=== PATIENT | male | born 1975 | race Caucasian/White ===

== ENCOUNTER 2016-04-20 16:42 | Emergency (ER) | payer SELFPAY ==
[~2016-04-20] VITALS: Ht 203.2 cm; Wt 97.0 kg
[~2016-04-20 16:42] MED LIST: HYDR-3533 PO; NAPR500 PO; ZOFR4TAB3 SL
[2016-04-20 16:44] VITALS: BP 147/84; PULSE 80; RESP 14; TEMP 98.1; O2SAT 96
== END 2016-04-20 19:17 | disposition left against medical advice (07) ==
LOC: NED 16:42
DX: R10.9 Unspecified abdominal pain (principal)
CPT/HCPCS: 99281

== ENCOUNTER 2016-09-17 17:57 | Observation (INO) | payer MEDICAID ==
[~2016-09-17] VITALS: Ht 203.2 cm; Wt 115.0 kg
[2016-09-17 17:58] VITALS: BP 140/77; PULSE 88; RESP 20; TEMP 98.6; O2SAT 97
--- NOTE | 2016-09-17 18:07 | PD ---
Physical Exam Time Seen by Provider: 18:04 Narrative 41yo M c/o excessive urination, thirst, lightheaded, dizziness, and dry mouth x4 days. +vomiting a couple times. Denies chest pain, SOB currently; reports chest pain Tuesday night. BGM in triage is "out of reportable range" x2. Patient seen in triage. VS reviewed. Awaiting bed placement. Data Data Last Documented VS Vital Signs Date Time Temp Pulse Resp B/P Pulse Ox O2 Delivery O2 Flow Rate FiO2 09/17/16 17:58 98.6 88 20 140/77 97 Room Air [facility] Supervised Visit with NESSA: Yenny Garibay Sep 17, 2016 18:07
--- NOTE | 2016-09-17 18:13 | PD ---
HPI . polyuria and polydipsia x 4 days Chief Complaint: Medical Clearance Time Seen by Provider: 18:23 Travel History International Travel<30 days: No Contact w/Intl Traveler<30days: No Traveled to known affect area: No History of Present Illness HPI 41-year-old male with no known medical history here with complaints of polyuria , polydipsia and fatigue for the past 4 days. Patient says that all of a sudden he developed these symptoms and feels like he is always thirsty. He tells me he drinks large amounts of liquids and never feels satisfied. He also reports having to urinate all the time. He tells me that he just feels fatigued and weak. He is in the process of applying for patient assistance and has not seen a primary care physician in a very long time. In triage his blood sugar was taken and could not be registered on the meter. He is accompanied by his . He denies any chest pain, nausea, vomiting, diaphoresis, or abdominal pain. PFSH Past Medical History Diminished Hearing: No Past Surgical History Eye Surgery: Yes (bilateral lens replacement) Tonsillectomy: Yes Social History Alcohol Use: No Tobacco Use: Yes (1 ppd) Substance Use: No Allergies-Medications (Allergen,Severity, Reaction): Coded Allergies: No Known Allergies (Unverified , 09/17/16) Reported Meds & Prescriptions Reported Meds & Active Scripts Active No Active Prescriptions or Reported Medications Review of Systems General / Constitutional: No: Fever Eyes: No: Visual changes HENT: No: Headaches Cardiovascular: No: Chest Pain or Discomfort Respiratory: No: Shortness of Breath Gastrointestinal: No: Abdominal Pain Genitourinary: No: Dysuria Musculoskeletal: No: Pain Skin: No Rash Neurologic: No: Weakness Psychiatric: No: Depression Endocrine: No: Polydipsia Hematologic/Lymphatic: No: Easy Bruising Physical Exam Narrative GENERAL: AAO x 3, no acute distress, Well-nourished, well-developed patient. SKIN: Warm and dry. No visible rashes or bruising. HEAD: Normocephalic and atraumatic. EYES: No scleral icterus. No injection or drainage. EOM intact, PERRLA ENT: No nasal drainage noted. Mucous membranes pink. Airway patent. Moist mucous membranes NECK: Supple, trachea midline. No JVD. CARDIOVASCULAR: Regular rate and rhythm without murmurs, gallops, or rubs. RESPIRATORY: Breath sounds equal bilaterally. No accessory muscle use. No rhonchi or rales. GASTROINTESTINAL: Abdomen soft, non-tender, nondistended. EXTREMITIES: No cyanosis or edema. BACK: Nontender without obvious deformity. No CVA tenderness. NEURO: CN II-12 intact, sales account leader strength normal b/l, UE and LE 5/5, no focal deficits PSYCH: AAO x 3, normal affect. Data Data Last Documented VS Vital Signs Date Time Temp Pulse Resp B/P Pulse Ox O2 Delivery O2 Flow Rate FiO2 09/17/16 19:06 85 18 134/79 97 09/17/16 17:58 98.6 Room Air Orders Package Pick Up / Telemetry [id number] (09/17/16 18:30) ^ Insert Iv (09/17/16 18:30) Diet Npo (09/17/16 Dinner) Complete Blood Count With Diff (09/17/16 18:30) Comprehensive Metabolic Panel (09/17/16 18:30) Beta Hydroxybutyrate (Acetone) (09/17/16 18:30) Hemoglobin (Hgb) A1c (09/17/16 18:30) Urinalysis - C+S If Indicated (09/17/16 18:30) Sodium Chlor 0.9% 1000 Ml Inj (Ns 1000 M (09/17/16 19:00) Arterial Blood Gas (Abg) (09/17/16 ) Insulin Human Regular Inj (Novolin R Inj (09/17/16 21:00) Labs Laboratory Tests Test 09/17/16 09/17/16 09/17/16 18:30 19:03 20:39 White Blood Count 9.6 TH/MM3 Red Blood Count 4.55 MIL/MM3 Hemoglobin 13.4 GM/DL Hematocrit 40.1 % Mean Corpuscular Volume 88.0 FL Mean Corpuscular Hemoglobin 29.5 PG Mean Corpuscular Hemoglobin 33.5 % Concent Red Cell Distribution Width 13.6 % Platelet Count 267 TH/MM3 Mean Platelet Volume 9.3 FL Neutrophils (%) (Auto) 68.3 % Lymphocytes (%) (Auto) 21.0 % Monocytes (%) (Auto) 7.9 % Eosinophils (%) (Auto) 2.1 % Basophils (%) (Auto) 0.7 % Neutrophils # (Auto) 6.6 TH/MM3 Lymphocytes # (Auto) 2.0 TH/MM3 Monocytes # (Auto) 0.8 TH/MM3 Eosinophils # (Auto) 0.2 TH/MM3 Basophils # (Auto) 0.1 TH/MM3 CBC Comment DIFF FINAL Differential Comment Sodium Level 126 MEQ/L Potassium Level 4.0 MEQ/L Chloride Level 91 MEQ/L Carbon Dioxide Level 23.8 MEQ/L Anion Gap 11 MEQ/L Blood Urea Nitrogen 9 MG/DL Creatinine 1.16 MG/DL Estimat Glomerular Filtration 70 ML/MIN Rate Random Glucose 738 MG/DL Calcium Level 8.7 MG/DL Total Bilirubin 0.3 MG/DL Aspartate Amino Transf 21 U/L (AST/SGOT) Alanine Aminotransferase 46 U/L (ALT/SGPT) Alkaline Phosphatase 202 U/L Total Protein 7.1 GM/DL Albumin 3.5 GM/DL B-Hydroxybutyrate 0.18 MMOL/L Blood Gas Puncture Site RT RADIAL Blood Gas Patient Temperature 98.6 Blood Gas HCO3 24 mmol/L Blood Gas Base Excess 0.3 mmol/L Blood Gas Oxygen Saturation 90 % Arterial Blood pH 7.42 Arterial Blood Partial 38 mmHg Pressure CO2 Arterial Blood Partial 74 mmHG Pressure O2 Arterial Blood Oxygen Content 16.8 Vol % Arterial Blood 4.7 % Carboxyhemoglobin Arterial Blood Methemoglobin 0.9 % Blood Gas Hemoglobin 13.2 G/DL Oxygen Delivery Device ROOM AIR Blood Gas Inspired Oxygen 21 % Urine Color LIGHT-YELLOW Urine Turbidity CLEAR Urine pH 5.0 Urine Specific [place] 1.032 Urine Protein NEG mg/dL Urine Glucose (UA) 1000 mg/dL Urine Ketones NEG mg/dL Urine Occult Blood NEG Urine Nitrite NEG Urine Bilirubin NEG Urine Urobilinogen LESS THAN 2.0 MG/DL Urine Leukocyte Esterase NEG Urine WBC 1 /hpf Urine Squamous Epithelial <1 /hpf Cells Microscopic Urinalysis Comment CULT NOT INDICATED MDM Medical Decision Making Medical Screen Exam Complete: Yes Emergency Medical Condition: Yes Medical Record Reviewed: Yes Differential Diagnosis Newly diagnosed diabetes, DKA, urinary tract infection Narrative Course 41-year-old male here with complaints of polyuria, polydipsia and fatigue. It appears the patient has newly diagnosed diabetes. IV access and cardiac monitoring were started here in the ED. Labs have been obtained. Case was discussed with Dr. Guillen Laboratory Tests Test 09/17/16 09/17/16 09/17/16 18:30 19:03 20:39 White Blood Count 9.6 TH/MM3 Red Blood Count 4.55 MIL/MM3 Hemoglobin 13.4 GM/DL Hematocrit 40.1 % Mean Corpuscular Volume 88.0 FL Mean Corpuscular Hemoglobin 29.5 PG Mean Corpuscular Hemoglobin 33.5 % Concent Red Cell Distribution Width 13.6 % Platelet Count 267 TH/MM3 Mean Platelet Volume 9.3 FL Neutrophils (%) (Auto) 68.3 % Lymphocytes (%) (Auto) 21.0 % Monocytes (%) (Auto) 7.9 % Eosinophils (%) (Auto) 2.1 % Basophils (%) (Auto) 0.7 % Neutrophils # (Auto) 6.6 TH/MM3 Lymphocytes # (Auto) 2.0 TH/MM3 Monocytes # (Auto) 0.8 TH/MM3 Eosinophils # (Auto) 0.2 TH/MM3 Basophils # (Auto) 0.1 TH/MM3 CBC Comment DIFF FINAL Differential Comment Sodium Level 126 MEQ/L Potassium Level 4.0 MEQ/L Chloride Level 91 MEQ/L Carbon Dioxide Level 23.8 MEQ/L Anion Gap 11 MEQ/L Blood Urea Nitrogen 9 MG/DL Creatinine 1.16 MG/DL Estimat Glomerular Filtration 70 ML/MIN Rate Random Glucose 738 MG/DL Calcium Level 8.7 MG/DL Total Bilirubin 0.3 MG/DL Aspartate Amino Transf 21 U/L (AST/SGOT) Alanine Aminotransferase 46 U/L (ALT/SGPT) Alkaline Phosphatase 202 U/L Total Protein 7.1 GM/DL Albumin 3.5 GM/DL B-Hydroxybutyrate 0.18 MMOL/L Blood Gas Puncture Site RT RADIAL Blood Gas Patient Temperature 98.6 Blood Gas HCO3 24 mmol/L Blood Gas Base Excess 0.3 mmol/L Blood Gas Oxygen Saturation 90 % Arterial Blood pH 7.42 Arterial Blood Partial 38 mmHg Pressure CO2 Arterial Blood Partial 74 mmHG Pressure O2 Arterial Blood Oxygen Content 16.8 Vol % Arterial Blood 4.7 % Carboxyhemoglobin Arterial Blood Methemoglobin 0.9 % Blood Gas Hemoglobin 13.2 G/DL Oxygen Delivery Device ROOM AIR Blood Gas Inspired Oxygen 21 % Urine Color LIGHT-YELLOW Urine Turbidity CLEAR Urine pH 5.0 Urine Specific [place] 1.032 Urine Protein NEG mg/dL Urine Glucose (UA) 1000 mg/dL Urine Ketones NEG mg/dL Urine Occult Blood NEG Urine Nitrite NEG Urine Bilirubin NEG Urine Urobilinogen LESS THAN 2.0 MG/DL Urine Leukocyte Esterase NEG Urine WBC 1 /hpf Urine Squamous Epithelial <1 /hpf Cells Microscopic Urinalysis Comment CULT NOT INDICATED He is not in any signs of DKA. Here in the emergency department patient was given IV fluids and IV insulin. I recommend admission for hyperglycemia and newly diagnosed diabetes. Discussed this with the patient and he is in agreement. 2114: Case discussed with Dr. Barber. Patient will be admitted for observation. Diagnosis Primary Impression: Hyperglycemia Additional Impression: Diabetes mellitus, new onset Admitting Information Admitting Physician Requests: Admit Scripts No Active Prescriptions or Reported Meds Condition: Stable Oksana Horn Sep 17, 2016 18:12
[2016-09-17] MEDS ORDERED: SODIUM CHLOR 0.9% 1000 ML INJ 1,000 ML IV ONE (19:00)
[2016-09-17 19:06] VITALS: BP 134/79; PULSE 85; RESP 18; O2SAT 97
[2016-09-17 19:13] LABS: AUTOMATED NEUTROPHIL # 6.6 TH/MM3 (1.8-7.7); BASOPHIL # 0.1 TH/MM3 (0-0.2); BASOPHIL % 0.7 % (0.0-2.0); EOSINOPHIL # 0.2 TH/MM3 (0-0.4); EOSINOPHIL % 2.1 % (0.0-4.0); HEMATOCRIT 40.1 % (39.0-51.0); HEMO FLAGS DIFF FINAL; MEAN CORPUSCULAR HEMOGLOBIN 29.5 PG (27.0-34.0); MEAN CORPUSCULAR HGB CONC 33.5 % (32.0-36.0); MONO % 7.9 % (0.0-8.0); NEUT % 68.3 % (16.0-70.0); PLATELET COUNT 267 TH/MM3 (150-450); RED BLOOD COUNT 4.55 MIL/MM3 (4.50-5.90); RED CELL DISTRIBUTION WIDTH 13.6 % (11.6-17.2); WHITE BLOOD COUNT 9.6 TH/MM3 (4.0-11.0)
[2016-09-17 19:13] LABS: BLOOD GAS BASE EXCESS 0.3 mmol/L (-2-2); BLOOD GAS CARBOXYHEMOGLOBIN 4.7 % (0-4); BLOOD GAS HCO3 24 mmol/L (22-26); BLOOD GAS METHEMOGLOBIN 0.9 % (0-2); BLOOD GAS O2 HGB SATURATION 90 % (90-100); BLOOD GAS OXYGEN CONTENT 16.8 Vol % (12.0-20.0); BLOOD GAS PCO2 38 mmHg (38-42); BLOOD GAS PO2 74 mmHG (61-120); BLOOD GAS TOTAL HGB 13.2 G/DL (12.0-16.0); TEMP CORR TO 98.6
[2016-09-17 19:14] LABS: CRITICAL VALUE NO; DRAW SITE RT RADIAL; FIO2 21 %; NUMBER OF ARTERIAL PUNCTURES 1; OXYGEN DEVICE ROOM AIR; STAT YES; ULNAR PULSE PRESENT
[2016-09-17 19:48] LABS: ALKALINE PHOSPHATASE 202 U/L (45-117); ALT (GPT) 46 U/L (12-78); ANION GAP 11 MEQ/L (5-15); AST (GOT) 21 U/L (15-37); BETA-HYDROXYBUTYRATE 0.18 MMOL/L (0.00-0.39); BICARBONATE 23.8 MEQ/L (21.0-32.0); BLOOD UREA NITROGEN 9 MG/DL (7-18); CHLORIDE 91 MEQ/L (98-107); GLOMERULAR FILTRATION RATE 70 ML/MIN (>89); SODIUM (NA) 126 MEQ/L (136-145); TOTAL BILIRUBIN ADULT 0.3 MG/DL (0.2-1.0)
[2016-09-17 20:58] LABS: BLOOD, URINE NEG (NEG); COMMENT (UR) CULT NOT INDICATED; CULTURE IF INDICATED CULT NOT INDICATED; GLUCOSE,URINE 1000 mg/dL (NEG); KETONE, URINE NEG (NEG); NITRITE,URINE NEG (NEG); SQUAMOUS EPITHELIAL CELL URINE <1 /hpf (0-5); URINE COLOR LIGHT-YELLOW (YELLW/STRAW)
[2016-09-17] MEDS ORDERED: INSULIN HUMAN REGULAR 1,000 UNITS/10 ML VIAL IV PUSH ONE (21:00)
[2016-09-17] MEDS ORDERED: LACTULOSE SYRUP 20 GM/30 ML CUP PO PRN (21:30)
[2016-09-17] MEDS ORDERED: BISACODYL 10 MG SUPP RECTAL PRN (21:30)
[2016-09-17] MEDS ORDERED: ONDANSETRON HCL 4 MG/2 ML VIAL IVP PRN (21:30)
[2016-09-17] MEDS ORDERED: MAGNESIUM HYDROXIDE SUSP 30 ML CUP PO PRN (21:30)
[2016-09-17] MEDS ORDERED: SENNOSIDES 8.6 MG TAB PO PRN (21:30)
[2016-09-17] MEDS ORDERED: DEXTROSE 50% IN WATER 50 ML VIAL(D50) IV PRN (21:30)
[2016-09-17] MEDS ORDERED: GLUCAGON 1 MG/ML VIAL OTHER PRN (21:30)
[2016-09-17] MEDS ORDERED: NALOXONE HCL 0.4 MG/ML AMP IV PRN (21:30)
[2016-09-18] VITALS (9 sets, daily range): BP systolic 106–129; BP diastolic 58–74; PULSE 53–81; RESP 18–22; TEMP 96.4–98.6; O2SAT 94–100
--- NOTE | 2016-09-18 01:37 | HHI.HP ---
[facility] Primary Care Physician No Primary Care Physician Admission Diagnosis hyperglycemia/newly dx diabetes Diagnoses: (1) Hyperglycemia (2) Diabetes mellitus, new onset (3) Hyponatremia Chief Complaint: Polydipsia, polyuria Travel History International Travel<30 Days: No Contact w/Intl Traveler <30 Da: No Traveled to Known Affected Are: No History of Present Illness The patient is a 41-year-old male who presented to the emergency department with complaint of polyuria and polydipsia for the past 4 days. He states that he has not been eating the last couple days, but has been drinking water constantly. He feels fatigued. He developed abdominal discomfort, nausea, and vomited once today. Review of Systems Constitutional: DENIES: Fever, Chills, Night Sweats Endocrine: COMPLAINS OF: Polydipsia, Polyuria Eyes: DENIES: Blurred vision, Vision loss Ears, nose, mouth, throat: DENIES: Hearing loss Respiratory: DENIES: Cough, Wheezing, Sputum production, Shortness of breath Cardiovascular: DENIES: Chest pain, Palpitations, Dyspnea on Exertion, Lower Extremity Edema Gastrointestinal: COMPLAINS OF: Abdominal pain, Nausea, Vomiting, DENIES: Constipation, Diarrhea Genitourinary: DENIES: Urinary frequency, Urinary incontinence, Urgency, Hematuria, Dysuria, Nocturia Musculoskeletal: DENIES: Joint pain, Muscle aches Integumentary: DENIES: Pruritus, Rash Hematologic/lymphatic: DENIES: Bruising Neurologic: DENIES: Headache Past Family Social History Past Medical History None Past Surgical History Tonsillectomy Bilateral eye surgery Reported Medications None Allergies: Coded Allergies: No Known Allergies (Unverified , 09/17/16) Family History COPD Diabetes mellitus type 2 Social History Smokes one half pack per day. Denies alcohol or illicit drug use. Physical Exam Vital Signs Vital Signs Date Time Temp Pulse Resp B/P Pulse Ox O2 Delivery O2 Flow Rate FiO2 09/18/16 00:10 98.4 68 18 129/74 94 09/17/16 19:06 85 18 134/79 97 09/17/16 18:16 88 16 09/17/16 17:58 98.6 88 20 140/77 97 Room Air Physical Exam GENERAL: Well-nourished, well-developed male in no acute distress. HEENT: Normocephalic, atraumatic. Pupils equal, round and reactive. Extraocular movements intact. No scleral icterus. No injection or drainage. Oropharynx is clear. Mucous membranes are moist. Poor dentition. CARDIOVASCULAR: Regular rate and rhythm without murmurs, gallops, or rubs. RESPIRATORY: Clear to auscultation. No wheezes, rales, or rhonchi. Breathing is non-labored. GASTROINTESTINAL: Abdomen soft, non-tender, nondistended. EXTREMITIES: Trace bilateral lower extremity edema. No calf tenderness. PSYCH: Alert and oriented x 3. Laboratory Laboratory Tests Test 09/17/16 09/17/16 09/17/16 18:30 19:03 20:39 White Blood Count 9.6 Red Blood Count 4.55 Hemoglobin 13.4 Hematocrit 40.1 Mean Corpuscular Volume 88.0 Mean Corpuscular Hemoglobin 29.5 Mean Corpuscular Hemoglobin 33.5 Concent Red Cell Distribution Width 13.6 Platelet Count 267 Mean Platelet Volume 9.3 Neutrophils (%) (Auto) 68.3 Lymphocytes (%) (Auto) 21.0 Monocytes (%) (Auto) 7.9 Eosinophils (%) (Auto) 2.1 Basophils (%) (Auto) 0.7 Neutrophils # (Auto) 6.6 Lymphocytes # (Auto) 2.0 Monocytes # (Auto) 0.8 Eosinophils # (Auto) 0.2 Basophils # (Auto) 0.1 CBC Comment DIFF FINAL Differential Comment Sodium Level 126 Potassium Level 4.0 Chloride Level 91 Carbon Dioxide Level 23.8 Anion Gap 11 Blood Urea Nitrogen 9 Creatinine 1.16 Estimat Glomerular Filtration 70 Rate Random Glucose 738 Calcium Level 8.7 Total Bilirubin 0.3 Aspartate Amino Transf 21 (AST/SGOT) Alanine Aminotransferase 46 (ALT/SGPT) Alkaline Phosphatase 202 Total Protein 7.1 Albumin 3.5 B-Hydroxybutyrate 0.18 Blood Gas Puncture Site RT RADIAL Blood Gas Patient Temperature 98.6 Blood Gas HCO3 24 Blood Gas Base Excess 0.3 Blood Gas Oxygen Saturation 90 Arterial Blood pH 7.42 Arterial Blood Partial 38 Pressure CO2 Arterial Blood Partial 74 Pressure O2 Arterial Blood Oxygen Content 16.8 Arterial Blood 4.7 Carboxyhemoglobin Arterial Blood Methemoglobin 0.9 Blood Gas Hemoglobin 13.2 Oxygen Delivery Device ROOM AIR Blood Gas Inspired Oxygen 21 Urine Color LIGHT-YELLOW Urine Turbidity CLEAR Urine pH 5.0 Urine Specific [place] 1.032 Urine Protein NEG Urine Glucose (UA) 1000 Urine Ketones NEG Urine Occult Blood NEG Urine Nitrite NEG Urine Bilirubin NEG Urine Urobilinogen LESS THAN 2.0 Urine Leukocyte Esterase NEG Urine WBC 1 Urine Squamous Epithelial <1 Cells Microscopic Urinalysis Comment CULT NOT INDICATED Result Diagram: 09/17/16182909/17/161829 Assessment and Plan Assessment and Plan 1. Hyperglycemia, new onset diabetes mellitus: Hemoglobin A1c is pending. Diabetic diet. Monitor Accu-Cheks and cover with sliding scale insulin. scrap sorter consult. I discussed at length with the patient the importance of controlling glucose with diet and medication. 2. Hyponatremia: Continue IV fluids. Monitor labs. 3. DVT prophylaxis: BENNETT Rojas. Hubert Cunningham MD Sep 18, 2016 01:37
[2016-09-18] MEDS: NS + KCL 20 MEQ INJ 1,000 ML IV SCH ×3 (03:00→21:45)
[2016-09-18] MEDS: INSULIN ASPART SUPPLEMENTAL SCALE SQ SCH ×4 (06:46→21:55)
[2016-09-18] MEDS: ACETAMINOPHEN 325 MG TAB PO PRN ×3 (06:51→21:56)
[2016-09-18 07:42] LABS: BICARBONATE 23.1 MEQ/L (21.0-32.0)
--- NOTE | 2016-09-18 10:16 | HHI.PR ---
Subjective Remarks Follow up for new onset diabetes. The patient reports his polydipsia and polyuria has improved. Denies any other medical complaints including no nausea/ vomiting/abdominal pain. He is tolerating oral intake. 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 Discussed regular foot and eye exams. Patient plans to go to PCP through [employer] patient assistance program. Discussed free diabetic education classes through [employer] ([place] Discussed depending on results of HgbA1c he will either have to be on insulin injections or oral medications. The patient is understanding and agreeable with the plan. Objective Vitals Vital Signs Date Time Temp Pulse Resp B/P Pulse Ox O2 Delivery O2 Flow Rate FiO2 09/18/16 08:00 96.4 66 18 117/68 97 09/18/16 04:22 68 09/18/16 03:32 98.6 66 18 121/59 97 09/18/16 00:10 98.4 68 18 129/74 94 09/17/16 19:06 85 18 134/79 97 09/17/16 18:16 88 16 09/17/16 17:58 98.6 88 20 140/77 97 Room Air I/O 09/17/16 09/17/16 09/17/16 09/18/16 09/18/16 09/18/16 07:00 15:00 23:00 07:00 15:00 23:00 Intake Total 600 ml Balance 600 ml Intake IV Total 600 ml Result Diagram: 09/17/16 1830 09/18/16 0640 Objective Remarks GENERAL: Well-nourished, well-developed middle aged male patient in [facility]. SKIN: Warm and dry. No rash. HEENT: Normocephalic. Atraumatic.Pupils equal and round. Mucous membranes pink and moist. NECK: Supple. Trachea midline. CARDIOVASCULAR: Regular rate and rhythm. S1, S2 noted. No murmur appreciated. RESPIRATORY: No accessory muscle use. Clear to auscultation. Breath sounds equal bilaterally. GASTROINTESTINAL: Abdomen soft, non-tender, nondistended. Normoactive bowel sounds x4. MUSCULOSKELETAL: No obvious deformities. Extremities without clubbing, cyanosis , or edema. NEUROLOGICAL: Awake and alert. No obvious cranial nerve deficits. Motor grossly within normal limits. Normal speech. PSYCHIATRIC: Appropriate mood and affect; insight and judgment normal. Medications and IVs Current Medications Medications (Trade) Dose Ordered Sig/Lynda Route Start Time Stop Time Status Last Admin (Tylenol) 650 mg Q4H PRN PO 09/17/16 21:30 09/18/16 06:51 (Zofran Inj) 4 mg Q6H PRN IVP 09/17/16 21:30 (Narcan Inj) 0.4 mg UNSCH PRN IV 09/17/16 21:30 (Milk Of Magnesia Liq) 30 ml Q12H PRN PO 09/17/16 21:30 (Senokot) 17.2 mg Q12H PRN PO 09/17/16 21:30 (Dulcolax Supp) 10 mg DAILY PRN RECTAL 09/17/16 21:30 (Lactulose Liq) 30 ml DAILY PRN PO 09/17/16 21:30 (D50w (Vial) Inj) 50 ml UNSCH PRN IV 09/17/16 21:30 Glucagon 1 mg 1 mg UNSCH PRN OTHER 09/17/16 21:30 (NS + KCl 20 Meq Inj) 1,000 ml @ 100 mls/hr Q10H IV 09/18/16 01:30 09/18/16 03:00 A/P Problem List: (1) Hyperglycemia ICD Code: R73.9 Status: Acute (2) Diabetes mellitus, new onset ICD Code: E11.9 Status: Acute (3) Hyponatremia ICD Code: E87.1 Status: Acute Assessment and Plan 41-year-old male with no significant past medical history, presented to the ED who presented to the emergency department with complaint of polyuria and polydipsia for the past 4 days. Severe Hyperglycemia, New Onset Diabetes Mellitus: BG 738 upon arrival, not in DKA. Hemoglobin A1c is pending. Diabetic diet. Monitor Accu-Cheks and cover with sliding scale insulin. unit educator and Track Repair Person consult. I discussed at length with the patient the importance of controlling glucose with diet and medications. Also educated on regular eye/foot exams, controlling cholesterol with LDL goal < 70. Depending on HgbA1c results, will either start on oral hypoglycemics or insulin injections. Needs close f/up with PCP, will be going [facility]. 1140hrs: Patient with blood glucose 461. Discussed with RN. Will give IVF bolus 1L and IV regular insulin 10u. HgbA1c still pending however will start on Levemir 10u hs and increase to medium dose SSI. Moderate Hyponatremia: Na 126 upon arrival. Suspect secondary to polyuria. Continue IV fluids. Repeat BMP with Na 138. Resolved. Severe Hypertriglyceridemia/Hyperlipidemia: triglycerides 926, LDL unable to be calculated. LFTs essentially wnl. Will start on Lipitor 80mg hs. DVT prophylaxis: BENNETT Rojas. Discharge Planning Pending HgbA1c and further blood glucose control. Pao Hernandez PA-C Sep 18, 2016 10:16
[2016-09-18 11:14] LABS: HDL CHOLESTEROL 24.1 MG/DL (40.0-60.0)
[2016-09-18] MEDS ORDERED: SODIUM CHLOR 0.9% 1000 ML INJ 1,000 ML IV ONE (11:45)
[2016-09-18] MEDS ORDERED: INSULIN HUMAN REGULAR 1,000 UNITS/10 ML VIAL IV PUSH ONE (11:45)
[2016-09-18] MEDS ORDERED: INSULIN DETEMIR 100 UNITS/ML VIAL SQ SCH (21:00)
[2016-09-18] MEDS: ATORVASTATIN 80 MG TAB PO SCH (21:44)
[2016-09-19] VITALS (10 sets, daily range): BP systolic 113–126; BP diastolic 64–75; PULSE 55–74; RESP 18; TEMP 97.7–98; O2SAT 97–98
[2016-09-19 05:37] LABS: BICARBONATE 23.4 MEQ/L (21.0-32.0); POTASSIUM 3.7 MEQ/L (3.5-5.1)
[2016-09-19] MEDS: INSULIN ASPART SUPPLEMENTAL SCALE SQ SCH ×4 (06:25→21:20)
[2016-09-19] MEDS: NS + KCL 20 MEQ INJ 1,000 ML IV SCH ×2 (07:30→17:30)
--- NOTE | 2016-09-19 11:21 | HHI.PR ---
Subjective Remarks Follow up for new onset uncontrolled diabetes. The patient reports feeling much better today. Polyuria/polydipsia resolved. He wants to go home however worried about being able to obtain diabetic supplies and insulin, will ask case manager specialist for assistance. Blood sugars still elevated, most recently 247. Objective Vitals Vital Signs Date Time Temp Pulse Resp B/P Pulse Ox O2 Delivery O2 Flow Rate FiO2 09/19/16 08:45 56 09/19/16 07:37 97.7 64 18 113/71 97 09/19/16 03:55 57 09/19/16 03:49 97.7 66 18 115/67 98 09/19/16 00:00 64 09/19/16 00:00 98.0 74 18 121/64 97 09/18/16 20:00 53 09/18/16 19:31 98.1 61 22 120/60 100 09/18/16 17:02 81 09/18/16 16:00 96.8 55 18 106/58 96 09/18/16 12:00 97.8 69 18 118/60 97 I/O 09/18/16 09/18/16 09/18/16 09/19/16 09/19/16 09/19/16 07:00 15:00 23:00 07:00 15:00 23:00 Intake Total 600 ml 1260 ml 1224 ml Balance 600 ml 1260 ml 1224 ml Intake Oral 1260 ml 240 ml IV Total 600 ml 984 ml # Voids 3 1 1 # Bowel Movements 1 Result Diagram: 09/17/16 1830 09/19/16 0453 Objective Remarks GENERAL: Well-nourished, well-developed middle aged male patient in [facility]. SKIN: Warm and dry. No rash. HEENT: Normocephalic. Atraumatic.Pupils equal and round. Mucous membranes pink and moist. NECK: Supple. Trachea midline. CARDIOVASCULAR: Regular rate and rhythm. S1, S2 noted. No murmur appreciated. RESPIRATORY: No accessory muscle use. Clear to auscultation. Breath sounds equal bilaterally. GASTROINTESTINAL: Abdomen soft, non-tender, nondistended. Normoactive bowel sounds x4. MUSCULOSKELETAL: No obvious deformities. Extremities without clubbing, cyanosis , or edema. NEUROLOGICAL: Awake and alert. No obvious cranial nerve deficits. Motor grossly within normal limits. Normal speech. PSYCHIATRIC: Appropriate mood and affect; insight and judgment normal. Medications and IVs Current Medications Medications (Trade) Dose Ordered Sig/Lynda Route Start Time Stop Time Status Last Admin (Tylenol) 650 mg Q4H PRN PO 09/17/16 21:30 09/18/16 21:56 (Zofran Inj) 4 mg Q6H PRN IVP 09/17/16 21:30 (Narcan Inj) 0.4 mg UNSCH PRN IV 09/17/16 21:30 (Milk Of Magnesia Liq) 30 ml Q12H PRN PO 09/17/16 21:30 (Senokot) 17.2 mg Q12H PRN PO 09/17/16 21:30 (Dulcolax Supp) 10 mg DAILY PRN RECTAL 09/17/16 21:30 (Lactulose Liq) 30 ml DAILY PRN PO 09/17/16 21:30 (D50w (Vial) Inj) 50 ml UNSCH PRN IV 09/17/16 21:30 Glucagon 1 mg 1 mg UNSCH PRN OTHER 09/17/16 21:30 (NS + KCl 20 Meq Inj) 1,000 ml @ 100 mls/hr Q10H IV 09/18/16 01:30 09/18/16 21:45 (Lipitor) 80 mg HS PO 09/18/16 21:00 09/18/16 21:44 (Levemir Inj) 10 units HS SQ 09/18/16 21:00 09/18/16 21:55 A/P Problem List: (1) Hyperglycemia ICD Code: R73.9 Status: Acute (2) Diabetes mellitus, new onset ICD Code: E11.9 Status: Acute (3) Hyponatremia ICD Code: E87.1 Status: Acute Assessment and Plan 41-year-old male with no significant past medical history, presented to the ED who presented to the emergency department with complaint of polyuria and polydipsia for the past 4 days. Severe Hyperglycemia, New Onset Diabetes Mellitus: BG 738 upon arrival, not in DKA. Hemoglobin A1c is pending. Diabetic diet. Monitor Accu-Cheks and cover with medium dose SSI. administrative resources associate and Perfume And Toilet Water Maker consult. I discussed at length with the patient the importance of controlling glucose with diet and medications. Also educated on regular eye/foot exams, controlling cholesterol with LDL goal < 70. Still awaiting HgbA1c results (called lab, should be available today), patient will likely require insulin at discharge. Started on Levemir 10u hs, will titrate as needed. Case management consulted to assist with obtaining diabetic supplies, insulin medications, and needs close f/up with PCP, will be going to [facility]. -1600hrs: BG 294. Will increase Levemir to 15u hs. HgbA1c 9.7. Patient not stable for discharge. Need further blood glucose control < 250. Also discussed with case management, will be difficult filling prescriptions as patient has Medicaid pending, hopefully can fill prescriptions in the pharmacy tomorrow prior to discharge. Moderate Hyponatremia: Na 126 upon arrival. Suspect secondary to polyuria. Continue IV fluids. Repeat BMP with Na 138. Resolved. Severe Hypertriglyceridemia/Hyperlipidemia: triglycerides 926, LDL unable to be calculated. LFTs essentially wnl. Started on Lipitor 80mg hs. DVT prophylaxis: SCDs, BENNETT barton. Discharge Planning Pending HgbA1c and further blood glucose control. Possible discharge this afternoon or tomorrow. manager inventory control assistance requested for obtaining diabetic supplies, insulin, and outpatient f/up. Pao Hernandez PA-C Sep 19, 2016 11:21
[2016-09-19] MEDS ORDERED: GLUCKIT15 (11:25)
[2016-09-19] MEDS ORDERED: NOVOLOGP2 SQ (11:25)
[2016-09-19] MEDS ORDERED: LANCETS1 MI1 (11:25)
[2016-09-19] MEDS ORDERED: INSU1MIS15 (11:25)
[2016-09-19] MEDS ORDERED: GLUCTES12 (11:25)
[2016-09-19] MEDS ORDERED: LEVEMIR SQ (17:19)
[2016-09-19] MEDS ORDERED: ATOR1TAB18 PO (17:19)
--- NOTE | 2016-09-19 17:20 | HHI.DCPOC ---
Discharge Care Plan Diagnosis: (1) Diabetes mellitus, new onset (2) Hypertriglyceridemia (3) Hyperlipidemia Goals to Promote Your Health * To prevent worsening of your condition and complications * To maintain your health at the optimal level Directions to Meet Your Goals Take your medications as prescribed Follow your dietary instruction Follow activity as directed Keep your appointments as scheduled Take your immunizations and boosters as scheduled If your symptoms worsen call your PCP, if no PCP go to Urgent Care Center or Emergency Room Smoking is Dangerous to Your Health. Avoid second hand smoke Call the 24-hour hour crisis hotline for domestic abuse at Pao Hernandez PA-C Sep 19, 2016 17:19
[2016-09-19] MEDS: ATORVASTATIN 80 MG TAB PO SCH (20:53)
[2016-09-19] MEDS ORDERED: INSULIN DETEMIR 100 UNITS/ML VIAL SQ SCH (21:00)
[2016-09-20 03:34] VITALS: PULSE 58
[2016-09-20 04:20] VITALS: BP 109/66; PULSE 61; RESP 16; TEMP 97.6; O2SAT 97
[2016-09-20] MEDS: INSULIN ASPART SUPPLEMENTAL SCALE SQ SCH ×2 (06:36→12:24)
[2016-09-20 07:00] VITALS: PULSE 60
[2016-09-20] MEDS ORDERED: LEVEMIR SQ (07:54)
--- NOTE | 2016-09-20 08:00 | HHI.DS ---
Discharge Summary Admission Date Sep 17, 2016 at 21:14 Discharge Date: Sep 20, 2016 Admitting Diagnosis hyperglycemia/newly dx diabetes (1) Hyperglycemia ICD Code: R73.9 Diagnosis: Principal (2) Diabetes mellitus, new onset ICD Code: E11.9 Diagnosis: Principal (3) Hyponatremia ICD Code: E87.1 Diagnosis: Secondary Procedures None Brief History - From Admission The patient is a 41-year-old male who presented to the emergency department with complaint of polyuria and polydipsia for the past 4 days. He states that he has not been eating the last couple days, but has been drinking water constantly. He feels fatigued. He developed abdominal discomfort, nausea, and vomited once today. CBC/BMP: 09/17/16 1830 09/19/16 0453 Significant Findings Laboratory Tests Test 09/17/16 09/17/16 09/17/16 09/18/16 18:30 19:03 20:39 06:40 Sodium Level 126 MEQ/L (136-145) Chloride Level 91 MEQ/L (98-107) Estimat Glomerular Filtration 70 ML/MIN (>89) Rate Random Glucose 738 MG/DL 306 MG/DL (74-106) (74-106) Hemoglobin A1c 9.7 % (4.3-6.0) Alkaline Phosphatase 202 U/L (45-117) Arterial Blood 4.7 % (0-4) Carboxyhemoglobin Urine Glucose (UA) 1000 mg/dL (NEG) Calcium Level 8.4 MG/DL (8.5-10.1) Triglycerides Level 926 MG/DL (42-150) Cholesterol Level 224 MG/DL (120-200) HDL Cholesterol 24.1 MG/DL (40.0-60.0) Test 09/19/16 04:53 Blood Urea Nitrogen 6 MG/DL (7-18) Creatinine 0.49 MG/DL (0.60-1.30) Random Glucose 247 MG/DL (74-106) Calcium Level 8.2 MG/DL (8.5-10.1) PE at Discharge GENERAL: Well-nourished, well-developed middle aged male patient in NAD. SKIN: Warm and dry. No rash. HEENT: Normocephalic. Atraumatic.Pupils equal and round. Mucous membranes pink and moist. NECK: Supple. Trachea midline. CARDIOVASCULAR: Regular rate and rhythm. S1, S2 noted. No murmur appreciated. RESPIRATORY: No accessory muscle use. Clear to auscultation. Breath sounds equal bilaterally. GASTROINTESTINAL: Abdomen soft, non-tender, nondistended. Normoactive bowel sounds x4. MUSCULOSKELETAL: No obvious deformities. Extremities without clubbing, cyanosis , or edema. NEUROLOGICAL: Awake and alert. No obvious cranial nerve deficits. Motor grossly within normal limits. Normal speech. PSYCHIATRIC: Appropriate mood and affect; insight and judgment normal. Pt update on day of discharge No further symptoms. Has been giving himself insulin shots here. Talked to dietitian. He has some understanding about diabetes care, diet, and management as he has had close family members with these issues before. Verbalizes understanding regarding Levemir titration scale. Hospital Course 41-year-old male with no significant past medical history who presented with significant hyperglycemia with blood glucose 738, not in DKA. Hemoglobin A1c 9.7. Started on insulin which was titrated with blood glucoses much improved in the low 200s. Continue on Levemir 17 units, with plans to titrate slowly to outpatient blood glucose readings. Follow-up with PCP. Started on statin for hypertriglyceridemia. Pt Condition on Discharge: Stable Discharge Disposition: Discharge Home Discharge Time: > 30 minutes Discharge Instructions DIET: Follow Instructions for: Diabetic Diet Activities you can perform: Regular-No Restrictions Follow up Referrals: Diabetic Education PCP Follow-up - 1 Week New Medications: Blood Glucose Monitoring W/Device (Glucocom Blood Glucose Mo W/Device) 1 Kit Kit 1 KIT .ROUTE DIRECTED Blood Sugar Management #1 KIT Glucocom Test Strips (Glucocom Test Strips) 1 Rebeca Rebeca 1 EA .ROUTE DIRECTED Blood Sugar Management #1 BOX Insulin Detemir Inj (Levemir Inj) 1,000 unit/ 10 ML Vial 17 UNITS SQ HS Do not mix with any other Insulin. Blood Sugar Management Days Ref 0 VIAL Insulin Syringe/U-100/31G X 5/16" 1 ml (Insulin Syringe/U-100/31G X 5/16" 1 ml) 1 Mis Mis 1 EA .ROUTE DIRECTED Blood Sugar Management #1 Ref 0 BOX Lancets (Lancets) 1 Mis Mis 1 EA .ROUTE DIRECTED Blood Sugar Management #1 Ref 0 BOX Atorvastatin (Atorvastatin) 80 Mg Tab 80 MG PO HS Cholesterol Management Days 30 TAB King Guerra Sep 20, 2016 08:00 Alvino Yanes DO Sep 20, 2016 17:26
[2016-09-20 08:21] VITALS: BP 115/78; PULSE 59; RESP 20; TEMP 97.6; O2SAT 96
[2016-09-20 11:24] VITALS: BP 119/80; PULSE 67; RESP 20; TEMP 98.1; O2SAT 97
== END 2016-09-20 13:54 | disposition home or self-care (01) ==
LOC: NEPE 17:57 → NEDA 21:14 → NEPGCP 09-18 00:01
PROVIDERS: ADMIT Hospitalist; ATTEND Hospitalist
DX: E11.65 Type 2 diabetes mellitus with hyperglycemia (principal); R68.2 Dry mouth, unspecified; R42 Dizziness and giddiness; F17.210 Nicotine dependence, cigarettes, uncomplicated; E87.1 Hypo-osmolality and hyponatremia; E78.1 Pure hyperglyceridemia; E78.5 Hyperlipidemia, unspecified
CPT/HCPCS: 36600; 80048; 80053; 80061; 81001; 82010; 82805; 82948; 83036; 85025; 96361; 96374; 99285; G0378; J1815; J3480; J7030

== ENCOUNTER 2017-07-24 06:36 | Emergency (ER) | payer MEDICAID, OTHER ==
[~2017-07-24] VITALS: Ht 193 cm; Wt 104.5 kg
[~2017-07-24 06:36] MED LIST changes: +ATOR80TA45 PO; +GLUCKIT15; +GLUCTES12; -HYDR-3533 PO; +INSU1MIS15; +LANCETS1 MI1; +LEVEMIR SQ; -NAPR500 PO; -ZOFR4TAB3 SL
[2017-07-24 07:05] VITALS: BP 166/85; PULSE 92; RESP 18; TEMP 98; O2SAT 97
[2017-07-24] MEDS ORDERED: INSULIN HUMAN REGULAR 1,000 UNITS/10 ML VIAL IV PUSH ONE ×2 (07:30→11:15)
[2017-07-24] MEDS ORDERED: SODIUM CHLOR 0.9% 1000 ML INJ 1,000 ML IV ONE ×2 (07:30→09:30)
[2017-07-24 07:41] LABS: AUTOMATED NEUTROPHIL # 7.1 TH/MM3 (1.8-7.7); BASOPHIL # 0.1 TH/MM3 (0-0.2); BASOPHIL % 1.1 % (0.0-2.0); EOSINOPHIL # 0.2 TH/MM3 (0-0.4); EOSINOPHIL % 1.8 % (0.0-4.0); LYMPH % 25.3 % (9.0-44.0); LYMPHOCYTE # 2.8 TH/MM3 (1.0-4.8); MEAN CORPUSCULAR HEMOGLOBIN 28.6 PG (27.0-34.0); MEAN CORPUSCULAR HGB CONC 34.1 % (32.0-36.0); MEAN PLATELET VOLUME 8.5 FL (7.0-11.0); MONO % 8.1 % (0.0-8.0); MONOCYTE # 0.9 TH/MM3 (0-0.9); NEUT % 63.7 % (16.0-70.0); PLATELET COUNT 287 TH/MM3 (150-450); RED BLOOD COUNT 5.23 MIL/MM3 (4.50-5.90); RED CELL DISTRIBUTION WIDTH 13.9 % (11.6-17.2); WHITE BLOOD COUNT 11.1 TH/MM3 (4.0-11.0)
[2017-07-24 08:36] LABS: ALBUMIN 3.7 GM/DL (3.4-5.0); ALT (GPT) 23 U/L (12-78); AST (GOT) 18 U/L (15-37); BICARBONATE 24.2 MEQ/L (21.0-32.0); BLOOD UREA NITROGEN 18 MG/DL (7-18); CALCIUM 8.9 MG/DL (8.5-10.1); CHLORIDE 102 MEQ/L (98-107); GLOMERULAR FILTRATION RATE 83 ML/MIN (>89); GLUCOSE,RANDOM 342 MG/DL (74-106); SODIUM (NA) 138 MEQ/L (136-145)
[2017-07-24 08:37] LABS: ALKALINE PHOSPHATASE 152 U/L (45-117); TOTAL BILIRUBIN ADULT 0.4 MG/DL (0.2-1.0); TOTAL PROTEIN 7.5 GM/DL (6.4-8.2)
[2017-07-24 11:22] VITALS: BP 110/56; PULSE 71; RESP 19; O2SAT 98
--- NOTE | 2017-07-24 11:57 | PD ---
HPI Chief Complaint: Diabetic Time Seen by Provider: 07:27 Travel History International Travel<30 days: No Contact w/Intl Traveler<30days: No Traveled to known affect area: No History of Present Illness HPI 41-year-old male with a history of insulin-dependent diabetes, presents here today with complaints of elevated blood glucose. Patient states that he has been taking his insulin as prescribed. He also reports that he has been following a diabetic diet. He reports increased thirst and increased urination. Is no reported illnesses. 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 PFSH Past Medical History Blood Disorders: No Cancer: No Cardiovascular Problems: No Diabetes: Yes Patient Takes Glucophage: No Diminished Hearing: No Endocrine: Yes Gastrointestinal Disorders: Yes (Reflux) Genitourinary: No Immune Disorder: No Musculoskeletal: Yes Neurologic: No Psychiatric: No Reproductive: No Respiratory: No Influenza Vaccination: No Past Surgical History Eye Surgery: Yes (bilateral lens replacement) Tonsillectomy: Yes Other Surgery: Yes Social History Alcohol Use: No Tobacco Use: Yes (<1 ppd) Substance Use: No Allergies-Medications (Allergen,Severity, Reaction): Coded Allergies: No Known Allergies (Unverified Adverse Reaction, Unknown, 07/24/17) Reported Meds & Prescriptions Reported Meds & Active Scripts Active Levemir Inj (Insulin Detemir) 1,000 unit/ 10 ML Vial 17 Units SQ HS 30 Days Do not mix with any other Insulin. Atorvastatin (Atorvastatin Calcium) 80 Mg Tab 80 Mg PO HS 30 Days Glucocom Test Strips (Blood Glucose Test Strips) 1 Rebeca Rebeca 1 Ea .ROUTE DIRECTED Lancets 1 Mis Mis 1 Ea .ROUTE DIRECTED Insulin Syringe/U-100/31G X 5/16" 1 ml 1 Mis Mis 1 Ea .ROUTE DIRECTED Glucocom Blood Glucose Mo W/Device (Device) 1 Kit Kit 1 Kit .ROUTE DIRECTED Review of Systems Except as stated in HPI: all other systems reviewed are Neg General / Constitutional: No: Fever, Chills HENT: No: Headaches, Lightheadedness Cardiovascular: No: Chest Pain or Discomfort, Palpitations Respiratory: No: Cough, Shortness of Breath Gastrointestinal: No: Nausea, Vomiting, Abdominal Pain Genitourinary: Positive: Frequency, No: Dysuria Musculoskeletal: No: Weakness, Pain Neurologic: No: Weakness, Dizziness, Headache Endocrine: Positive: Polyuria, Polydipsia Physical Exam Narrative GENERAL: Well-nourished, well-developed patient, in no acute respiratory distress. SKIN: Focused skin assessment warm/dry. HEAD: Normocephalic/atraumatic. EYES: No scleral icterus. No injection or drainage. NECK: Supple, trachea midline. CARDIOVASCULAR: Regular rate and rhythm without murmurs, gallops, or rubs. RESPIRATORY: Breath sounds equal bilaterally. No accessory muscle use. GASTROINTESTINAL: Abdomen soft, non-tender, nondistended. MUSCULOSKELETAL: No cyanosis, or edema. BACK: Nontender without obvious deformity. No CVA tenderness. NEUROLOGICAL: Awake and alert. Cranial nerves II through XII intact. Motor and sensory grossly within normal limits. Five out of 5 muscle strength in all muscle groups. Normal speech. Data Data Last Documented VS Vital Signs Date Time Temp Pulse Resp B/P (MAP) Pulse Ox O2 Delivery O2 Flow Rate FiO2 07/24/17 11:22 71 19 110/56 (74) 98 Room Air 07/24/17 07:05 98.0 Orders Orders Complete Blood Count With Diff (07/24/17 07:16) Blood Glucose (07/24/17 07:16) Comprehensive Metabolic Panel (07/24/17 07:16) Iv Access Insert/Monitor (07/24/17 07:16) Insulin Human Regular Inj (Novolin R Inj (07/24/17 07:30) Sodium Chlor 0.9% 1000 Ml Inj (Ns 1000 M (07/24/17 07:30) Sodium Chlor 0.9% 1000 Ml Inj (Ns 1000 M (07/24/17 09:30) Blood Glucose (07/24/17 09:34) Insulin Human Regular Inj (Novolin R Inj (07/24/17 11:15) Diet 1999 Ada Cons Carb (07/24/17 Lunch) Labs Laboratory Tests Test 07/24/17 07:20 White Blood Count 11.1 TH/MM3 Red Blood Count 5.23 MIL/MM3 Hemoglobin 15.0 GM/DL Hematocrit 44.0 % Mean Corpuscular Volume 84.0 FL Mean Corpuscular Hemoglobin 28.6 PG Mean Corpuscular Hemoglobin Concent 34.1 % Red Cell Distribution Width 13.9 % Platelet Count 287 TH/MM3 Mean Platelet Volume 8.5 FL Neutrophils (%) (Auto) 63.7 % Lymphocytes (%) (Auto) 25.3 % Monocytes (%) (Auto) 8.1 % Eosinophils (%) (Auto) 1.8 % Basophils (%) (Auto) 1.1 % Neutrophils # (Auto) 7.1 TH/MM3 Lymphocytes # (Auto) 2.8 TH/MM3 Monocytes # (Auto) 0.9 TH/MM3 Eosinophils # (Auto) 0.2 TH/MM3 Basophils # (Auto) 0.1 TH/MM3 CBC Comment DIFF FINAL Differential Comment Blood Urea Nitrogen 18 MG/DL Creatinine 1.00 MG/DL Random Glucose 342 MG/DL Total Protein 7.5 GM/DL Albumin 3.7 GM/DL Calcium Level 8.9 MG/DL Alkaline Phosphatase 152 U/L Aspartate Amino Transf (AST/SGOT) 18 U/L Alanine Aminotransferase (ALT/SGPT) 23 U/L Total Bilirubin 0.4 MG/DL Sodium Level 138 MEQ/L Potassium Level 4.0 MEQ/L Chloride Level 102 MEQ/L Carbon Dioxide Level 24.2 MEQ/L Anion Gap 12 MEQ/L Estimat Glomerular Filtration Rate 83 ML/MIN MDM Medical Decision Making Medical Screen Exam Complete: Yes Emergency Medical Condition: Yes Differential Diagnosis Metabolic derangement versus dehydration versus hyperglycemia Narrative Course 41-year-old male history of diabetes mellitus, presented with complaints of hyperglycemia. Patient reports he has been taking his insulin as prescribed. He reports that he does not currently have a physician. He has been given IV regular insulin as well as 2 L of IV fluid. He will be discharged and told to follow-up with the [facility] for diabetes management. Blood glucose at the time of discharge was 216. He is instructed to avoid carbohydrates. He will also be instructed to drink plenty of fluids. Diagnosis Primary Impression: Hyperglycemia Additional Impression: Diabetes mellitus, new onset Referrals: [facility] Additional Instructions: Avoid carbohydrates. Drink plenty of fluids. Disposition: 01 DISCHARGE HOME Condition: Stable Sreedhar Nick MD July 24, 2017 11:57
== END 2017-07-24 13:42 | disposition home or self-care (01) ==
LOC: NEPE 06:36
DX: E11.65 Type 2 diabetes mellitus with hyperglycemia (principal); F17.210 Nicotine dependence, cigarettes, uncomplicated; Z79.4 Long term (current) use of insulin; Z79.899 Other long term (current) drug therapy
CPT/HCPCS: 80053; 85025; 96361; 96374; 96375; 99284; J1815; J7030